=== PATIENT | female | born 1985 | race Caucasian/White ===

== ENCOUNTER 2016-09-02 20:40 | Emergency (ER) | payer OTHER | END 2016-09-02 21:39 | disposition home or self-care (01) | LOC: ER1 20:40 | DX: S63.92XA Sprain of unspecified part of left wrist and hand, initial encounter (principal); F17.210 Nicotine dependence, cigarettes, uncomplicated; Z88.2 Allergy status to sulfonamides; X50.1XXA Overexertion from prolonged static or awkward postures, initial encounter; Y93.89 Activity, other specified; Y92.009 Unspecified place in unspecified non-institutional (private) residence as the place of occurrence of the external cause; Y99.8 Other external cause status | CPT/HCPCS: 73130; 99283 ==

== ENCOUNTER 2020-08-15 18:07 | Emergency (ER) | payer OTHER ==
[~2020-08-15 18:07] MED LIST: AMOXICILLIN500 MG PO; CIPRO500 MG PO; CLEOCIN HCL300 MG PO; FELDENE10 MG PO; FLAGYL500 MG PO; IBUPROFEN600 MG PO; MACROBID 100 M100 MG PO; NAPROSYN500 MG PO; NORCO 5-325 TA1 EACH PO; ONDANSETRON ODT4 MG PO; PEPCID20 MG PO; PREDNISONE20 MG PO; SPRINTEC 28 DA1 EACH PO; VIBRAMYCIN100 MG PO; ZOFRAN4 MG PO
[2020-08-15] MEDS ORDERED: IBUPROFEN800 MG PO (20:51)
[2020-08-15] MEDS ORDERED: CYCLOBENZAPRINE10 MG PO (20:51)
== END 2020-08-15 20:59 | disposition home or self-care (01) ==
LOC: ER1 18:07
DX: S40.011A Contusion of right shoulder, initial encounter (principal); F17.210 Nicotine dependence, cigarettes, uncomplicated; Z88.2 Allergy status to sulfonamides; Z88.1 Allergy status to other antibiotic agents; W19.XXXA Unspecified fall, initial encounter; Y92.89 Other specified places as the place of occurrence of the external cause; Y99.0 Civilian activity done for income or pay
CPT/HCPCS: 73030; 96374; 99283

== ENCOUNTER 2020-10-18 21:36 | Emergency (ER) | payer OTHER ==
[~2020-10-18 21:36] MED LIST changes: +CYCLOBENZAPRINE10 MG PO; +IBUPROFEN800 MG PO
== END 2020-10-18 22:28 | disposition left against medical advice (07) ==
LOC: ER1 21:36
DX: L02.11 Cutaneous abscess of neck (principal); Z88.8 Allergy status to other drugs, medicaments and biological substances; Z88.1 Allergy status to other antibiotic agents
CPT/HCPCS: 99282

== ENCOUNTER → 2022-01-16 | Outpatient (CLI) | payer OTHER | LOC: EXRD 11:00 | DX: M25.361 Other instability, right knee (principal) | CPT/HCPCS: 73562 ==